=== PATIENT | female | born 1945 | race Caucasian/White ===

== ENCOUNTER → 2018-07-07 | Outpatient (CLI) | payer MEDICARE ==
[~2018-07-07] MED LIST: ASPIR-LOW81 MG PO; ASPIRIN 81M81 MG/TA2 PO; MULTIPLE VITAMI1 CAP PO; MVI; NORCO 325 MG-51 TAB PO; PAXIL 20MG20 MG PO; PAXIL40 MG PO
== END ==
LOC: COL.RAD 10:18
DX: C34.2 Malignant neoplasm of middle lobe, bronchus or lung (principal); R91.8 Other nonspecific abnormal finding of lung field
CPT/HCPCS: Q9967

== ENCOUNTER → 2018-11-13 | Outpatient (CLI) | payer MEDICARE | LOC: COL.RAD 11-06 10:30 | DX: C34.2 Malignant neoplasm of middle lobe, bronchus or lung (principal) | CPT/HCPCS: Q9967 ==

== ENCOUNTER → 2019-06-16 | Outpatient (CLI) | payer MEDICARE | LOC: COL.RAD 09:11 | DX: C34.2 Malignant neoplasm of middle lobe, bronchus or lung (principal); R91.8 Other nonspecific abnormal finding of lung field; E27.8 Other specified disorders of adrenal gland | CPT/HCPCS: Q9967 ==

== ENCOUNTER → 2020-10-09 | Outpatient (CLI) | payer MEDICARE | LOC: COL.RAD 09:26 | DX: C34.90 Malignant neoplasm of unspecified part of unspecified bronchus or lung (principal); Z95.828 Presence of other vascular implants and grafts | CPT/HCPCS: Q9967 ==

== ENCOUNTER 2021-05-11 10:43 | Day surgery (SDC) | payer MEDICARE ==
[~2021-05-11] VITALS: Ht 152.4 cm; Wt 46.7 kg
[2021-05-11] MEDS ORDERED: FOLIC ACID 11 MG/TA1 PO (11:15)
[2021-05-11] MEDS ORDERED: DECADRON 4MG TAB4 MG PO (11:16)
[2021-05-11] MEDS ORDERED: MEGACE ORAL40 MG/ML PO (11:17)
[2021-05-11 11:42] VITALS: BP 134/60; PULSE 68; TEMP 98.1
[2021-05-11 12:50] VITALS: BP 130/65; PULSE 68
--- NOTE | 2021-05-11 12:50 | NUR ---
PATIENT BROUGHT BACK TO BAY 4 VIA CART. AMBULATED TO CHAIR WITHOUT DIFFICULTY. AWAKE ALERT, DENIES PAIN OR NAUSEA. REQUESTS COFFEE AT THIS TIME, MADE WITH ICE. VITAL SIGNS STABLE. MD AT BEDSIDE TO SPEAK WITH PATIENT IN REGARDS TO RESULTS. WARM BLANKET PROVIDED, CALL WAGNER WITHIN REACH. WILL CONTINUE TO MONITOR.
[2021-05-11 13:05] VITALS: BP 132/61; PULSE 70
--- NOTE | 2021-05-11 13:05 | NUR ---
TOLERATING DRINK WITHOUT DIFFICULTY. WILL CONTINUE TO MONITOR. VITAL SIGNS STABLE.
[2021-05-11 13:20] VITALS: BP 138/59; PULSE 66
--- NOTE | 2021-05-11 13:20 | NUR ---
PATIENTS DAUGHTER CALLED, WILL PICK PATIENT UP AT FRONT ENTRANCE. IV REMOVED WITHOUT DIFFICULTY. STATES SHE FEELS READY TO GO HOME. PATIENT TO GET DRESSED AT THIS TIME.
--- NOTE | 2021-05-11 13:35 | NUR ---
DISCHARGE INSTRUCTIONS REVIEWED WITH PATIENT, ALL QUESTIONS ANSWERED. BROUGHT DOWN TO LOBBY VIA WHEEL CHAIR. DAUGHTER AT FRONT ENTRANCE TO DRIVE HOME. ALL BELONGINGS IN HAND.
== END 2021-05-11 13:35 | disposition home or self-care (01) ==
LOC: SDCO 10:43
DX: K22.2 Esophageal obstruction (principal); K21.00 Gastro-esophageal reflux disease with esophagitis, without bleeding; Z79.899 Other long term (current) drug therapy; Z85.118 Personal history of other malignant neoplasm of bronchus and lung; Z20.822 Contact with and (suspected) exposure to COVID-19
CPT/HCPCS: C1726; J2704

== ENCOUNTER 2021-09-07 11:15 | Day surgery (SDC) | payer MEDICARE ==
[~2021-09-07] VITALS: Ht 152.4 cm; Wt 42.7 kg
[~2021-09-07 11:15] MED LIST changes: +DECADRON 4MG TAB4 MG PO; +FOLIC ACID 11 MG/TA1 PO; +MEGACE ORAL40 MG/ML PO
[2021-09-07] MEDS ORDERED: CARDIZEM 30MG T30 MG PO (12:04)
[2021-09-07] MEDS ORDERED: SYNTHROID 0.0.025 MG PO (12:05)
[2021-09-07] MEDS ORDERED: ZETIA 10MG TAB10 MG PO (12:14)
[2021-09-07] MEDS ORDERED: FERROCITE324 MG PO (12:14)
[2021-09-07] MEDS ORDERED: COLACE 100100 MG/CAP PO (12:15)
[2021-09-07] MEDS ORDERED: ATROVENT I0.2 MG/1 M IH (12:16)
[2021-09-07 12:17] VITALS: BP 113/81; PULSE 127; TEMP 98.3
[2021-09-07] MEDS ORDERED: AMOXICILLIN 50500 MG PO (12:19)
[2021-09-07 12:55] VITALS: BP 119/66; PULSE 89; TEMP 97.9
--- NOTE | 2021-09-07 12:55 | NUR ---
Patient returns to bay 2 per cart after having EGD with dilation and is awake and alert. IV fluids infusing via right port a catheter. Siderails up x2 and call light in reach. Allowed to rest. Temp 97.9 and room air sats 98%.
[2021-09-07 13:10] VITALS: BP 118/74; PULSE 106
--- NOTE | 2021-09-07 13:10 | NUR ---
Drinking warm coffee. Instructed to stay on liquid diet for 24 hours. Daughter in room and voices understanding of liquid diet.
[2021-09-07 13:25] VITALS: BP 117/73; PULSE 104
--- NOTE | 2021-09-07 13:25 | NUR ---
Dr. Wilcox here and talks with the patient. All questions answered. Right port a catheter deaccessed and site covered with bandaid. Site is free of redness or swelling. Patient dressed by daughter and assisted into wheelchair. Denies difficulty swallowing or pain. Dismissed to home driven by spouse and assisted into car by daughter.
== END 2021-09-07 13:25 | disposition home or self-care (01) ==
LOC: SDCO 11:15
DX: K22.2 Esophageal obstruction (principal); J44.9 Chronic obstructive pulmonary disease, unspecified; C34.90 Malignant neoplasm of unspecified part of unspecified bronchus or lung; C78.00 Secondary malignant neoplasm of unspecified lung; F17.210 Nicotine dependence, cigarettes, uncomplicated; H57.9 Unspecified disorder of eye and adnexa; I69.398 Other sequelae of cerebral infarction; Z79.899 Other long term (current) drug therapy; Z92.21 Personal history of antineoplastic chemotherapy; Z92.3 Personal history of irradiation
CPT/HCPCS: C1726; C1769; J1644; J2704; J7030

== ENCOUNTER 2021-10-08 14:14 | Observation (INO) | payer MEDICARE ==
[~2021-10-08] VITALS: Ht 152.4 cm; Wt 40.0 kg
[~2021-10-08 14:14] MED LIST changes: +AMOXICILLIN 50500 MG PO; +ATROVENT I0.2 MG/1 M IH; +CARDIZEM 30MG T30 MG PO; +COLACE 100100 MG/CAP PO; +FERROCITE324 MG PO; +SYNTHROID 0.0.025 MG PO; +ZETIA 10MG TAB10 MG PO
[2021-10-08 14:57] LABS: BASO # 0.1 K/mm3 (0.0-0.2); BASO % 0.5 % (0.0-2.0); EOS # 0.1 K/mm3 (0.0-0.7); EOS % 0.5 % (0-4.0); GRAN % 79.6 % (42.2-75.2); HEMATOCRIT 43.9 % (37.0-47.0); HEMOGLOBIN 14.4 g/dl (12.5-16.0); LYMPH # 1.3 K/mm3 (1.2-3.4); LYMPH % 11.5 % (20.0-51.0); MEAN CELL VOLUME 86 fl (80.0-100.0); MEAN CORPUSCULAR HEMOGLOBIN 28 pg (27.0-31.0); MEAN CORPUSCULAR HGB CONC 33 g/dl (33.0-37.0); MEAN PLATELET VOLUME 8.9 fl (7.4-10.4); MONO # 0.8 K/mm3 (0.1-0.6); MONO % 7.2 % (1.7-9.3); PLATELET COUNT 430 K/mm3 (130-400); RED BLOOD COUNT 5.13 M/mm3 (4.10-5.30); REDCELL DISTRIBUTION WIDTH-CV 15.5 % (11.5-14.5)
[2021-10-08 15:18] LABS: ALANINE AMINOTRANSFERASE 10 U/L (0-55); ALKALINE PHOSPHATASE 76 U/L (40-150); ANION GAP 21 mmol/L (7-16); AST,SGOT 19 U/L (5-34); BILIRUBIN,TOTAL 0.7 mg/dL (0.2-1.2); BLOOD UREA NITROGEN 17 mg/dL (10-20); CALCIUM 8.8 mg/dL (8.4-10.2); CARBON DIOXIDE 15 mmol/L (23-31); CHLORIDE 107 mmol/L (98-107); CREATININE, serum 0.64 mg/dL (0.57-1.11); GLUCOSE 97 mg/dL (70-99); LIPASE < 10 U/L (8-78); POTASSIUM 3.3 mmol/L (3.5-4.5); SODIUM 143 mmol/L (136-145); TOTAL PROTEIN 6.6 gm/dL (6.2-8.1)
[2021-10-08 17:00] VITALS: BP 133/64; PULSE 108; TEMP 98.1
[2021-10-08] MEDS ORDERED: MEGACE ORAL40 MG/ML PO (18:39)
[2021-10-08] MEDS ORDERED: TYLENOL #4 (1 UDTAB PO (18:42)
[2021-10-08] MEDS ORDERED: MUCUS RELIEF400 M1 PO (18:43)
[2021-10-08] MEDS ORDERED: FERROUS SU325 MG/TAB PO (18:45)
[2021-10-08] MEDS ORDERED: FOLIC ACID 11 MG/TA1 PO (18:46)
[2021-10-08] MEDS ORDERED: EUTHYROX25 MCG PO (18:51)
[2021-10-08] MEDS ORDERED: PROTONIX 40MG T40 MG PO (18:52)
[2021-10-08] MEDS ORDERED: PROAIR HFA0.09 MG/AC IH (18:59)
[2021-10-08] MEDS ORDERED: ONE-A-DAY WOM200 MCG PO (19:00)
--- NOTE | 2021-10-08 19:26 | NUR ---
Pt arrived to the floor this evening. Resting in bed, daughter at bedside, PRN pain meds given per request. Report given to nightshift nurse who wiill resume care.
[2021-10-08 20:10] VITALS: BP 109/65; PULSE 98; TEMP 97.6
--- NOTE | 2021-10-08 21:41 | NUR ---
Patient assessed around 1949. Drowsy, awakens easily. Denies pain and discomfort at this time. Port to right chest with IV fluids running per orders. Denies having any questions, needs, or concerns at this time. In bed with call light within reach. Bed alarm on.
[2021-10-08 22:59] VITALS: BP 113/62; PULSE 100; TEMP 97.6
[2021-10-09 04:36] VITALS: BP 145/79; PULSE 100; TEMP 97.5
[2021-10-09 05:04] LABS: BASO # 0.1 K/mm3 (0.0-0.2); BASO % 0.6 % (0.0-2.0); EOS # 0.1 K/mm3 (0.0-0.7); EOS % 1.2 % (0-4.0); GRAN # 7.6 K/mm3 (1.4-6.5); GRAN % 72.2 % (42.2-75.2); HEMATOCRIT 41.3 % (37.0-47.0); HEMOGLOBIN 13.5 g/dl (12.5-16.0); LYMPH # 1.8 K/mm3 (1.2-3.4); LYMPH % 16.7 % (20.0-51.0); MEAN CELL VOLUME 87 fl (80.0-100.0); MEAN CORPUSCULAR HEMOGLOBIN 29 pg (27.0-31.0); MEAN CORPUSCULAR HGB CONC 33 g/dl (33.0-37.0); MEAN PLATELET VOLUME 9.3 fl (7.4-10.4); MONO # 0.9 K/mm3 (0.1-0.6); MONO % 8.3 % (1.7-9.3); PLATELET COUNT 411 K/mm3 (130-400); RED BLOOD COUNT 4.74 M/mm3 (4.10-5.30); REDCELL DISTRIBUTION WIDTH-CV 15.8 % (11.5-14.5)
--- NOTE | 2021-10-09 05:11 | NUR ---
Patient has denied pain and discomfort this shift. Lung sounds with increased coarse crackles. On oxygen at 2 L/min via NC. Updated LESLIE Marina. New order to hold IV fuids, and give IV Lasix. Given per orders. Patient voices no questions, needs, or concerns at this time. In bed with call light within reach. Labs obtained and taken to lab.
[2021-10-09 05:23] LABS: CALCIUM 8.4 mg/dL (8.4-10.2); CREATININE, serum 0.59 mg/dL (0.57-1.11); MAGNESIUM 1.6 mg/dL (1.6-2.6); POTASSIUM 3.8 mmol/L (3.5-4.5)
[2021-10-09 07:38] VITALS: BP 142/69; PULSE 98; TEMP 97.7
--- NOTE | 2021-10-09 08:12 | NUR ---
Pt assessment complete. Pt is sitting up in bed upon entry, she is A/O x4. Her breathing is audibly course, pt denies SOB but states she is having back pain from having to breathe this way. Slightly productive cough is present. Pt denies any N/V. Currently NPO for EGD later today. Repositioning provided. Call light within reach.
[2021-10-09 11:34] VITALS: BP 141/73; PULSE 104; TEMP 97.4
--- NOTE | 2021-10-09 13:44 | NUR ---
Karime Kent RN and Babita Sharma RN met with pt initially by herself and then with her daughter along with treatment team. Both Maye and her daughter are wanting care to be provided at home and are willing to accept hospice services. We reviewed the options for hospice services, including where services could be provided and which companies serve this area. After consideration, the daughter and her mother selected [facility] to be done at home with option to move to hospice house if care becomes too much. Daughter is waiting at bedside to see how her mother does with EGD going on now. Discharge date will be determined by these findings and what interventions are done. Support provided to daughter. Referral made to Jewel at [facility] by phone and information faxed.
[2021-10-09 15:51] VITALS: BP 116/60; PULSE 104
--- NOTE | 2021-10-09 16:29 | NUR ---
The patient is to have an EGD today. A palliative care consult was ordered. Babita, palliative care nurse, notified SW that she met with the patient and her family and they are wanting to pursue hospice at home from [facility]. A referral was faxed to Jewel at [facility]. Awaiting screen.
--- NOTE | 2021-10-09 18:41 | NUR ---
Pt's breathing remained very wet sounding despite IV Lasix. Remains on 2L O2 via NC. Purewick in place and works well, good UOP. Intermittent back pain relieved with PRN Morphine. Repositioning completed. Tolerating sips of water.
[2021-10-09 20:06] VITALS: BP 132/72; PULSE 117; TEMP 97.8
[2021-10-09 22:22] VITALS: BP 131/77; PULSE 115; TEMP 97.9
--- NOTE | 2021-10-09 23:00 | NUR ---
ASSESSMENT COMPLETE. PT RESTING IN BED. PT REFUSED HER LOVENOX INJECTION. PT IS PALLATIVE CARE AND GOING TO HOSPICE. PT GIVEN MORPHINE FOR CANCER RELATED PAIN. PT DENIES PALPITATIONS, OR DIZZINESS. PT GIVEN FRESH WATER PER REQUEST. PT STATES SHE HAS NO OTHER NEEDS AT THIS TIME. CALL LIGHT WITHIN REACH.
[2021-10-10 04:29] VITALS: BP 116/71; PULSE 95; TEMP 98.1
--- NOTE | 2021-10-10 06:10 | NUR ---
PT RESTING IN BED. MORPHINE GIVEN PER REQUEST FOR CANCER RELATED PAIN. LABS DRAWN AND TAKEN TO LAB. PUREWICK CHANGED AND 400ML OF URINE REMOVED FROM CANISTER. PT GIVEN FRESH WATER PER REQUEST. PT DENIES PALPITATIONS OR DIZZINESS. PT STATES SHE HAS NO OTHER NEEDS AT THIS TIME. CALL LIGHT WITHIN REACH.
[2021-10-10 07:27] LABS: CALCIUM 9.3 mg/dL (8.4-10.2); CREATININE, serum 0.65 mg/dL (0.57-1.11); MAGNESIUM 1.7 mg/dL (1.6-2.6); POTASSIUM 3.8 mmol/L (3.5-4.5)
[2021-10-10 08:16] VITALS: BP 119/64; PULSE 109; TEMP 98.5
--- NOTE | 2021-10-10 10:00 | NUR ---
Pt assessment complete. Pt is laying in bed upon entry, she is A/O x4. Her breathing is even and unlabored on 2L O2 via NC. Pt still has audible wet breath sounds. Occasional cough present, does feel a slight improvement with breathing. Pain to back and neck, Lidocaine patch placed. Purewick replaced and patient repositioned. Call light within reach.
[2021-10-10 11:39] VITALS: BP 120/75; PULSE 113; TEMP 98.6
[2021-10-10] MEDS ORDERED: TRANSDERM-0.5 MG/21 TD (12:02)
[2021-10-10] MEDS ORDERED: ROXANOL 20MG20 MG/ML SL (12:03)
[2021-10-10] MEDS ORDERED: ATROPINE SULFATE5 ML SL (12:04)
[2021-10-10] MEDS ORDERED: ATIVAN 1MG T1 MG/TAB PO (12:05)
[2021-10-10] MEDS ORDERED: REFRESH TEARS 330 ML OP (12:06)
[2021-10-10] MEDS ORDERED: ZOFRAN ODT4 MG PO (12:06)
[2021-10-10] MEDS ORDERED: IPRATROPIUM BROM3 M1 IH (12:08)
[2021-10-10 12:23] VITALS: BP 120/75; PULSE 113; TEMP 98.6
--- NOTE | 2021-10-10 12:55 | NUR ---
Jewel, at [facility], reports that they are able to accept the patient and start her on services today. MARISOL contacted the patient's daughter, Sydnie, to update. Sydnie is agreeable to the plan. She states that she is driving now though and on her way up to the hospital. She asked to talk to MARISOL once she gets here. MARISOL was notified the patient's daughter arrived to the hospital. MARISOL met with the patient. The patient's best friend, Kristen, was in the patient's room. MARISOL updated the patient about hospice's acceptance and how they can take her today. The patient reports that she is ready to get home today and would like to move forward with getting transportation set up through EMS. The patient reports that she has a hospital bed, wheelchair, and bedside commode. She reports that she would just need oxygen. MARISOL notified [facility]. Jewel reports that they will get the oxygen ordered and meet the patient at her home at 1430 to start services and they will bring the oxygen. MARISOL updated the patient and her friend. The patient's daughter, Sydnie, then arrived to the hospital. MARISOL updated her on the above. Sydnie is in agreement to the plan. MARISOL presented the EMS Consent form to Sydnie. Sydnie signed the form. The patient is to discharge back home with her daughter today, 10/10, on hospice from [facility]. Transportation was scheduled at 1345, via [facility]. MARISOL informed the patient, her daughter, friend, RN, and [facility] at [facility] of the time. They were all agreeable to the time. No additional needs at this time.
--- NOTE | 2021-10-10 13:06 | NUR ---
PAC deaccessed at this time. Pain controlled with Lidocaine patch and PRN Morphine. Pt's daughter leaving to meet with Hospice nurse at this time.
--- NOTE | 2021-10-10 14:02 | NUR ---
Pt left via EMS to home with Hospice at this time.
== END 2021-10-10 14:02 | disposition hospice, home (50) ==
LOC: COL.ER 14:14 → MEDICAL 15:41
PROVIDERS: Personal Emergency Response Attendant; Physician Assistant; ADMIT Internal Medicine
DX: C34.90 Malignant neoplasm of unspecified part of unspecified bronchus or lung (principal); C79.9 Secondary malignant neoplasm of unspecified site; J96.01 Acute respiratory failure with hypoxia; K22.2 Esophageal obstruction; E87.6 Hypokalemia; F17.210 Nicotine dependence, cigarettes, uncomplicated; E83.42 Hypomagnesemia; E78.5 Hyperlipidemia, unspecified; E87.2 Acidosis; R00.0 Tachycardia, unspecified; J44.9 Chronic obstructive pulmonary disease, unspecified; F32.A Depression, unspecified; E46 Unspecified protein-calorie malnutrition; I69.354 Hemiplegia and hemiparesis following cerebral infarction affecting left non-dominant side; K21.9 Gastro-esophageal reflux disease without esophagitis; Z79.82 Long term (current) use of aspirin; D50.9 Iron deficiency anemia, unspecified; Z66 Do not resuscitate; Z79.899 Other long term (current) drug therapy; Z99.3 Dependence on wheelchair; E03.9 Hypothyroidism, unspecified; Z79.890 Hormone replacement therapy
CPT/HCPCS: 99233-AI; C1726; G0008; G0378; J1650; J1940; J2270; J2405; J2704; J3475; J3480; J7030